=== PATIENT | male | born 2000 | race Two or more races ===

== ENCOUNTER 2021-02-11 10:35 | Emergency (ER) | payer OTHER ==
[~2021-02-11] VITALS: Ht 172.7 cm; Wt 61.2 kg
[~2021-02-11 10:35] MED LIST: [UNRECOGNIZED DRUG - OTHER] PO
== END 2021-02-11 16:09 | disposition home or self-care (01) ==
LOC: ER 10:35
DX: S50.01XA Contusion of right elbow, initial encounter (principal); S50.11XA Contusion of right forearm, initial encounter; W01.198A Fall on same level from slipping, tripping and stumbling with subsequent striking against other object, initial encounter; Y93.89 Activity, other specified; Y92.89 Other specified places as the place of occurrence of the external cause; Y99.8 Other external cause status

== ENCOUNTER 2021-06-09 17:32 | Emergency (ER) | payer OTHER ==
[~2021-06-09] VITALS: Ht 172.7 cm; Wt 63.5 kg
[2021-06-09] MEDS ORDERED: BENZONATATE150 MG PO (20:02)
[2021-06-09] MEDS ORDERED: ZYRTEC10 M3 PO (20:02)
[2021-06-09] MEDS ORDERED: AMOX1TAB5 PO (20:02)
== END 2021-06-09 20:17 | disposition home or self-care (01) ==
LOC: ER 17:32
DX: J03.90 Acute tonsillitis, unspecified (principal); J06.9 Acute upper respiratory infection, unspecified

== ENCOUNTER 2022-09-25 16:27 | Emergency (ER) | payer OTHER ==
[~2022-09-25] VITALS: Ht 180.3 cm; Wt 70.3 kg
[~2022-09-25 16:27] MED LIST changes: +AMOX1TAB5 PO; +BENZONATATE150 MG PO; +ZYRTEC10 M3 PO
== END 2022-09-25 20:01 | disposition home or self-care (01) ==
LOC: ER 16:27
DX: S51.811A Laceration without foreign body of right forearm, initial encounter (principal); W27.8XXA Contact with other nonpowered hand tool, initial encounter; Y93.9 Activity, unspecified; Y92.9 Unspecified place or not applicable; Y99.9 Unspecified external cause status

== ENCOUNTER 2022-10-01 11:03 | Emergency (ER) | payer OTHER ==
[~2022-10-01] VITALS: Ht 175.3 cm; Wt 61.7 kg
== END 2022-10-01 13:55 ==
LOC: ER 11:03
DX: Z48.02 Encounter for removal of sutures (principal)

== ENCOUNTER 2023-08-18 08:30 | Emergency (ER) | payer OTHER ==
[~2023-08-18] VITALS: Ht 177.8 cm; Wt 62.1 kg
[2023-08-18 11:18] LABS: CALCIUM 9.4 mg/dL (8.5-10.1); CREATININE SERUM 0.96 mg/dL (0.70-1.30); GFR 95.44; POTASSIUM 4.76 mEq/L (3.5-5.1)
== END 2023-08-18 12:25 | disposition home or self-care (01) ==
LOC: ER 08:30
PROVIDERS: General Practice
DX: S62.306A Unspecified fracture of fifth metacarpal bone, right hand, initial encounter for closed fracture (principal); X58.XXXA Exposure to other specified factors, initial encounter; Y93.9 Activity, unspecified; Y92.9 Unspecified place or not applicable; Y99.9 Unspecified external cause status